=== PATIENT | female | born 1995 | race Caucasian/White ===

== ENCOUNTER 2022-08-24 18:37 | Emergency (ER) | payer BC, OTHER ==
[2022-08-24] MEDS ORDERED: MORPHINE SULFATE 2 MG INJ ONE ×2 (18:56→19:44)
[2022-08-24] MEDS ORDERED: MORPHINE SULFATE 2 MG INJ IM ONE ×2 (18:56→19:16)
--- NOTE | 2022-08-24 18:56 | ERPHSYRPT ---
- History of Present Illness Time Seen by Provider: 08/24/22 18:56 Source: patient Exam Limitations: no limitations Timing/Duration: today Quality: painful Severity: severe Location: extremities (left forearm) Possible Causes: other (dog bite) Associated Symptoms: swelling/mass/lumps, No numbness, No tingling Allergies/Adverse Reactions: No Known Drug Allergies Allergy (Verified 08/24/22 18:38) Hx Tetanus, Diphtheria Vaccination/Date Given: Yes (unknown date) - Review of Systems Constitutional: No Symptoms Eyes: No Symptoms Ears, Nose, & Throat: No Symptoms Respiratory: No Symptoms Cardiac: No Symptoms Abdominal/Gastrointestinal: No Symptoms Genitourinary Symptoms: No Symptoms Musculoskeletal: Other (left forearm pain and swelling) Skin: Other (dog bite left forearm) Psychological: Anxiety Endocrine: No Symptoms Hematologic/Lymphatic: No Symptoms Immunological/Allergic: No Symptoms All Other Systems: Reviewed and Negative - Female History Hx Now: No - Nursing Vital Signs Nursing Vital Signs: Initial Vital Signs Temperature 98.7 F 08/24/22 18:37 Pulse Rate 92 H 08/24/22 18:37 Respiratory Rate 18 08/24/22 18:37 Blood Pressure 124/94 08/24/22 18:37 O2 Sat by Pulse Oximetry 100 08/24/22 18:37 Pain Scale Pain Intensity 7 - Physical Exam General Appearance: moderate distress, anxiety Eye Exam: eyes nml inspection Ears, Nose, Throat Exam: normal ENT inspection Neck Exam: normal inspection Respiratory Exam: airway intact, No respiratory distress Cardiovascular Exam: capillary refill <2 sec Extremity Exam: other (2.5cm laceration on dorsal aspect of forearm, 1cm laceration on volar aspect of forearm, multiple puncture wounds surrounding the lacerations, no foreign body) Neurologic Exam: alert, oriented x 3, cooperative Skin Exam: normal color (Refer to extremity exam) SpO2 Interpretation: normal O2 Delivery: Room Air Procedures - Laceration/Wound Repair Left Anterior/Posterior Distal Volar Arm Time of Procedure: 19:30 Wound Location: Left, lower arm Wound Length (cm): 3.5 (of total laceration length, 2.5 dorsal, 1cm volar) Wound's Depth, Shape: superficial, irregular, contused tissue, into subcut Wound Explored: no foreign body noted Irrigated: Yes Hibiclens Prep: Yes Wound Debrided: minimal Wound Repaired With: Dermabond Sterile Dressing Applied?: No Splint Applied?: No Sling Applied?: Yes - Course Nursing assessment & vital signs reviewed: Yes - Radiology Exams Left Forearm X-ray Interpretation: Interpreted by me, No Fracture Left Shoulder X-ray Interpretation: Interpreted by me, Negative Ordered Tests: Active Orders 24 hr Category Date Time Status FOREARM Stat Exams 08/24/22 18:41 Completed SHOULDER Stat Exams 08/24/22 18:42 Completed Medication Summary Discontinued Medications Generic Name Dose Route Start Last Admin Trade Name Antonio PRN Reason Stop Dose Admin Diphtheria/Tetanus/Acell Pertussis 0.5 ml 08/24/22 20:06 08/24/22 20:35 Tdap --Diph,Pertuss(Acell),Tet Vac/Pf 0.5 Ml Vial IM 08/24/22 20:07 0.5 ml .ONCE ONE Administration Diphtheria/Tetanus/Acell Pertussis Confirm 08/24/22 20:34 Tdap --Diph,Pertuss(Acell),Tet Vac/Pf 0.5 Ml Vial Administered 08/24/22 20:35 Dose 0.5 ml IM .STK-MED ONE Morphine Sulfate 2 mg 08/24/22 18:56 08/24/22 19:03 Morphine Sulfate 2 Mg/Ml Inj IM 08/24/22 18:57 2 mg STAT ONE Administration Morphine Sulfate Confirm 08/24/22 18:56 Morphine Sulfate 2 Mg/Ml Inj Administered 08/24/22 18:57 Dose 2 mg .ROUTE .STK-MED ONE Morphine Sulfate 2 mg 08/24/22 19:16 08/24/22 19:47 Morphine Sulfate 2 Mg/Ml Inj IM 08/24/22 19:17 2 mg STAT ONE Administration Morphine Sulfate Confirm 08/24/22 19:44 Morphine Sulfate 2 Mg/Ml Inj Administered 08/24/22 19:45 Dose 2 mg .ROUTE .STK-MED ONE - Progress Progress: improved Progress Note: 08/24/22 20:08 Pain improved after 4mg of IM Morphine. XR showed no fracture. Tdap to be given. Gave patient option of sutures vs dermabond vs secondary intention. Patient elected to proceed with dermabond. Patient tolerated well, hemostatic at completion. D/c instruction given. 08/24/22 20:14 Placed in sling for comfort. Counseled pt/family regarding: diagnosis, need for follow-up, rad results Medical Desision Making - Diagnostic Testing Diagnostic test were ordered, analyzed, and reviewed by me: Yes Radiological Interpretation: Interpreted by me - Risk of complications The pt has a mod risk of morbidity or mortality based on: Need for prescription drug management - Departure Departure Disposition: Home Clinical Impression: Dog bite, Laceration of forearm, Puncture wound of forearm Condition: Stable Critical Care Time: No Referrals: DARY SILVA NP [NON-STAFF PHY W/O PRIVILEGES] - Follow up/PCP as directed Instructions: Animal Bites (DC) Additional Instructions: You have been evaluated in the Emergency Department today for an animal bite. Please keep the area surrounding the wounds clean and dry and watch closely for signs of infection. Please take the antibiotics prescribed to you in full, as directed. Please follow up with your primary care physician within two days. Return to the Emergency Department if you experience worsening or uncontrolled pain, spreading redness, fevers 100.4 or greater, pus from your bite, or for any other concerning symptoms. Thank you for choosing us for your care. Prescriptions: Hydrocodone/Acetaminophen [Hydrocodone-Acetamin 7.5-325] 1 each PO Q6H PRN PRN 3 Days #12 tablet MDD 4 tab PRN Reason: Pain Amox Tr/Potass Clav. 875 mg [Augmentin 875-125 Tablet] 1 each PO BID 7 Days #14 tablet
[2022-08-24 19:09] VITALS: O2SAT 100
[2022-08-24] MEDS ORDERED: Adacel Vial IM ONE ×2 (20:06→20:34)
[2022-08-24 20:30] VITALS: BP 128/98; PULSE 90
--- NOTE | 2022-08-24 20:31 | XRAY ---
Indication: Dog bite. Comparison: None 2 view left forearm demonstrates mid posterior soft tissue swelling with very tiny adjacent radial shaft cortical fracture. No other bony, articular, or soft tissue abnormalities.
--- NOTE | 2022-08-24 20:33 | XRAY ---
Indication: Pain. Comparison: None 3 view left shoulder demonstrates acromion slightly inferior to distal clavicle concerning for AC sprain versus separation. With and without weights may yield further information. No other bony, articular, or soft tissue abnormalities.
== END 2022-08-24 20:42 | disposition home or self-care (01) ==
LOC: ED 18:37
DX: S51.852A Open bite of left forearm, initial encounter (principal); W54.0XXA Bitten by dog, initial encounter; Z79.891 Long term (current) use of opiate analgesic
CPT/HCPCS: 12002; 73030; 73090; 90471; 90715; 96372; 99283; J2270

== ENCOUNTER 2023-04-29 07:24 | Day surgery (SDC) | payer BC, OTHER ==
[2023-04-29] MEDS ORDERED: Transderm Scop 1.5MG Patch TOP PRN (07:33)
[2023-04-29] MEDS ORDERED: Pepcid 20 MG VIAL IV ONE ×2 (07:33→07:56)
[2023-04-29 07:50] LABS: HCG URINE TEST NEGATIVE (NEGATIVE)
[2023-04-29] MEDS ORDERED: KEFZOL 1 GM/50 ML PREMIX** 1 GM/50 ML IVPB IV ONE (07:56)
[2023-04-29] MEDS ORDERED: Transderm Scop 1.5MG Patch ONE (07:56)
[2023-04-29] MEDS ORDERED: Lactated Ringers 1,000 ML IV ONE ×2 (07:56→09:53)
[2023-04-29] MEDS ORDERED: Lactated Ringers 1,000 ML IV SCH (08:00)
[2023-04-29] MEDS ORDERED: CEFAZOLIN 2 GM-D5W BAG** 2 GM/50 ML ML IV SCH ×2 (08:00→09:00)
[2023-04-29] MEDS ORDERED: CEFAZOLIN 2 GM-D5W BAG** 2 GM/50 ML ML IV ONE (08:25)
[2023-04-29 08:28] VITALS: RESP 16
[2023-04-29] MEDS ORDERED: Decadron 4 MG INJ ONE (08:51)
[2023-04-29] MEDS ORDERED: BRIDION 200MG/2ML IV ONE (08:51)
[2023-04-29] MEDS ORDERED: DIPRIVAN 200 MG/20 ML IV ONE (08:51)
[2023-04-29] MEDS ORDERED: Versed 2 MG/2 ML Injection ONE (08:51)
[2023-04-29] MEDS ORDERED: Zofran 4 MG/2 ML VIAL ONE ×2 (08:51→10:43)
[2023-04-29] MEDS ORDERED: Zemuron 100 MG/10 ML ONE (08:51)
[2023-04-29] MEDS ORDERED: Xylocaine-Mpf 2% 5 Ml Vial ONE (08:51)
[2023-04-29] MEDS ORDERED: TORAdol 30 mg Injection ONE (08:51)
[2023-04-29] MEDS ORDERED: SUBLIMAZE 100 MCG/2 ML ONE ×2 (08:51→10:53)
[2023-04-29] MEDS ORDERED: Sensorcaine 0.25% 10 ML ONE (09:02)
[2023-04-29] MEDS ORDERED: Ephedrine Sulfate 50 MG/ML ONE (10:09)
[2023-04-29] MEDS ORDERED: Hydromorphone 1 mg/ml Injection ONE (10:32)
[2023-04-29 11:45] VITALS: BP 135/81; PULSE 84; TEMP 97.8; O2SAT 100
--- NOTE | 2023-04-30 09:16 | OP ---
SURGERY DATE/TIME: 04/29/2023 0936 PREOPERATIVE DIAGNOSIS: Dyspareunia and right ovarian cyst. POSTOPERATIVE DIAGNOSIS: Dyspareunia and right paratubal cyst and left sided abdominal adhesion. PROCEDURES: 1) Diagnostic laparoscopy. 2) Removal of right paratubal cyst and lysis of bowel adhesions from the left side wall. SURGEON: Cassius Pratt D.O. VIDEOGAME DESIGNER: June Freitas, neurosurgical nurse practitioner. ANESTHESIA: General. ESTIMATED BLOOD LOSS: Minimal. COMPLICATIONS: None. INDICATIONS: The risks, benefits, indications and alternatives of the procedure were reviewed with the patient prior to procedure. The patient understood the risk of infection, bleeding, bowel injury, bladder injury, ureteral injury and pelvic infection associated with the surgery and desires to have this surgery as a possible means to alleviate her current medical condition. DESCRIPTION OF PROCEDURE AND FINDINGS: At this point the patient is taken to the operating room, given general sedation, placed in the supine position where she was prepped and draped in the usual sterile fashion. A 5 mm skin incision was made in the umbilical fold and a 5 mm incision was made where the 5 mm trocar and sleeve were advanced under direct visualization where pneumoperitoneum was obtained with 4 liters of CO2 gas. An additional incision was made in the left lower quadrant region where 5 mm incision was made and a 5 mm trocar and sleeve were advanced under direct visualization. An additional incision was made 2 cm above the symphysis pubis where a 5 mm incision was made and 5 mm trocar and sleeve were advanced under direct visualization. From this point, the visualization of the pelvic region appeared to be within normal limits other than her having right paratubal cyst approximately 3 x 2 cm in dimension and LigaSure was used after the adnexa was elevated and the LigaSure was placed just beneath the paratubal cyst was clamped, coagulated and cut and removed in its entirety without complications and hemostasis was obtained. The remaining fallopian tube in appeared to be within normal limits. From this point the left adnexa appeared to be within normal limits. There is no gross endometriotic implants that were noted in the pelvic region. The uterus was elevated and there were no endometriotic lesions that were noted in the posterior cul-de-sac or adnexal regions. There did appear to be left side colon was attached to the left abdominal side wall where at this point peanuts were used and the Endoshears were used to lyse adhesions removing left side colon away from the left abdominal side wall and it was done so without complication. From this point, all instruments were removed from the patient's abdominal region and the incisions were closed with 4-0 Monocryl suture. The patient was then taken out of anesthesia and was then taken to the recovery room in stable condition. All instruments and laps were accounted for x2.
== END 2023-04-29 11:05 | disposition home or self-care (01) ==
LOC: SDC 07:24
PROVIDERS: ATTEND Obstetrics & Gynecology
DX: N94.10 Unspecified dyspareunia (principal); N83.201 Unspecified ovarian cyst, right side; K66.0 Peritoneal adhesions (postprocedural) (postinfection); E11.9 Type 2 diabetes mellitus without complications
CPT/HCPCS: 81025; 82947; 87086; 96374; J0690; J1100; J1170; J1885; J2250; J2405; J2704; J3010; A9270-GY

== ENCOUNTER 2024-01-23 19:03 | Emergency (ER) | payer BC, OTHER ==
--- NOTE | 2024-01-23 19:16 | ERPHSYRPT ---
- History of Present Illness Time Seen by Provider: 01/23/24 19:16 Source: patient Exam Limitations: no limitations Physician History: This is a 29-year-old white female patient of nurse practitioner Marques who is approximately 8 weeks and was arguing with her spouse just prior to arrival and began having mild suprapubic cramps without vaginal bleeding that keller ddenly stopped prior to arrival and has not returned. Patient has had no nausea or vomiting symptoms. Her abdominal cramping has completely resolved. Patient has a history of hypothyroidism and insulin-dependent diabetes. Patient had TSH level drawn on 01/21/2024 and was within normal limits. Patient also had a beta quantitative hCG drawn on 01/21/2024 which measures 81,475. Patient denies chest pain. Patient denies shortness of breath. Timing/Duration: today Activites at Onset: none Quality: cramping Onset Location: suprapubic Pain Radiation: none Severity of Pain-Max: mild Severity of Pain-Current: none Sexual intercourse history: non-contributory Modifying Factors: Improves With: nothing Associated Symptoms: denies symptoms (Symptoms have resolved completely) Allergies/Adverse Reactions: No Known Drug Allergies Allergy (Verified 01/23/24 19:24) Home Medications: Insulin Aspart [NovoLOG Insulin] 1 unit SQ UD 04/21/23 [History] Levothyroxine Sodium [Tirosint] 1 tab PO DAILY 04/21/23 [History] Vit No.179/Iron/Folic [ Tablet] 1 each PO DAILY 01/23/24 [ History] Hx Tetanus, Diphtheria Vaccination/Date Given: Yes (unknown date) Hx Influenza Vaccination/Date Given: No Hx Pneumococcal Vaccination/Date Given: No Travel Risk - International Travel Have you traveled outside of the country in past 3 weeks: No - Emerging Infectious Disease Are you exhibiting symptoms associated with any current EIDs: No - Review of Systems Constitutional: No Symptoms Eyes: No Symptoms Ears, Nose, & Throat: No Symptoms Respiratory: No Symptoms Cardiac: No Symptoms Abdominal/Gastrointestinal: Other (Brief (minutes) suprapubic cramping during an argument with spouse) Genitourinary Symptoms: No Symptoms Musculoskeletal: No Symptoms Skin: No Symptoms Neurological: No Symptoms Psychological: No Symptoms Endocrine: No Symptoms Hematologic/Lymphatic: No Symptoms Immunological/Allergic: No Symptoms All Other Systems: Reviewed and Negative - Past Medical History Pertinent Past Medical History: Yes Neurological History: No Pertinent History ENT History: Other Cardiac History: No Pertinent History Respiratory History: No Pertinent History Endocrine Medical History: Diabetes Type I, Hypothyroidism Musculoskeletal History: No Pertinent History GI Medical History: No Pertinent History History: No Pertinent History Psycho-Social History: Anxiety, Depression Female Reproductive Disorders: No Pertinent History Other Medical History: 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 - Past Surgical History Past Surgical History: Yes Neuro Surgical History: No Pertinent History Cardiac: No Pertinent History, Cardiac Stent Respiratory: No Pertinent History Gastrointestinal: No Pertinent History, Other Genitourinary: No Pertinent History Musculoskeletal: No Pertinent History Female Surgical History: No Pertinent History Other Surgical History: colonoscopy - Social History Smoking Status: Never smoker Exposure to second hand smoke: No Drug Use: none Patient Lives Alone: No - Nursing Vital Signs Nursing Vital Signs: Initial Vital Signs Temperature 97.9 F 01/23/24 19:13 Pulse Rate 90 01/23/24 19:13 Blood Pressure 144/82 01/23/24 19:13 O2 Sat by Pulse Oximetry 99 01/23/24 19:13 Pain Scale Pain Intensity 0 - Physical Exam General Appearance: no apparent distress, alert, anxiety Eye Exam: PERRL/EOMI, eyes nml inspection Ears, Nose, Throat Exam: normal ENT inspection, moist mucous membranes Neck Exam: normal inspection, non-tender, supple, full range of motion Respiratory Exam: normal breath sounds, lungs clear, airway intact, No chest te nderness, No respiratory distress Cardiovascular Exam: regular rate/rhythm, normal heart sounds, normal peripheral pulses Gastrointestinal/Abdomen Exam: soft, normal bowel sounds, No tenderness Pelvic Exam: not done Rectal Exam: not done Back Exam: normal inspection, normal range of motion, No CVA tenderness, No vertebral tenderness Extremity Exam: normal inspection, normal range of motion, pelvis stable Neurologic Exam: alert, oriented x 3, cooperative, eye care professional II-XII nml as tested, nml cerebellar function, nml station & gait, sensation nml Skin Exam: normal color, warm, dry Lymphatic Exam: No adenopathy SpO2 Interpretation: normal O2 Delivery: Room Air - Course Nursing assessment & vital signs reviewed: Yes Ordered Tests: Active Orders 24 hr Category Date Time Status BMP Stat Lab 01/23/24 19:50 Completed CBC W DIFF Stat Lab 01/23/24 19:50 Completed CULTURE,URINE Stat Lab 01/23/24 20:03 Received UA W/RFX UR CULTURE Stat Lab 01/23/24 20:03 Completed Lab/Rad Data: Laboratory Result Diagrams 01/23/24 19:50 01/23/24 19:50 Laboratory Results 01/23/24 01/23/24 01/23/24 Range/Units 20:03 19:50 19:50 WBC 10.0 (3.98-10.04) x10^3/uL RBC 3.98 (3.93-5.22) x10^6/uL Hgb 11.5 (11.2-15.7) g/dL Hct 34.8 (34.1-44.9) % MCV 87.4 (79.4-94.8) fL MCH 28.9 (25.6-32.2) pg MCHC 33.0 (32.2-35.5) g/dL RDW 12.5 (11.7-14.4) % Plt Count 252 (182-369) x10^3/uL MPV 10.4 (9.4-12.3) fL Gran % 64.8 (34.0-71.1) % Immature Gran % (Auto) 0.3 (0.001-0.429) % Nucleat RBC Rel Count 0.0 (0.00-0.2) % Eos # (Auto) 0.04 (0.04-0.36) x10^3/uL Immature Gran # (Auto) 0.03 (0.001-0.031) x10^3u/L Absolute Lymphs (auto) 2.81 (1.18-3.74) x10^3/uL Absolute Monos (auto) 0.64 (0.24-0.86) x10^3/uL Absolute Nucleated RBC 0.00 (0.00-0.012) x10^3u/L Lymphocytes % 28.0 (19.3-51.7) % Monocytes % 6.4 (4.7-12.5) % Eosinophils % 0.4 L (0.7-5.8) % Basophils % 0.1 (0.1-1.2) % Absolute Granulocytes 6.49 H (1.56-6.13) x10^3/uL Basophils # 0.01 (0.01-0.08) x10^3/uL Sodium 134 L (135-145) mmol/L Potassium 4.2 (3.5-5.1) mmol/L Chloride 103 (98-107) mmol/L Carbon Dioxide 23 (22-30) mmol/L Anion Gap 12.3 (5-15) MEQ/L BUN 11 (7-17) mg/dL Creatinine 0.94 (0.52-1.04) mg/dL Estimated GFR 84.8 ML/MIN Glucose 194 H (74-106) mg/dL Calcium 8.8 (8.4-10.2) mg/dL Urine Color Yellow (Yellow) Urine Appearance Clear (Clear) Urine pH 6.5 (4.6-8.0) Ur Specific [place] 1.015 (1.005-1.030) Urine Protein Negative (Negative) Urine Glucose (UA) Negative (Negative) mg/dL Urine Ketones 40 A (Negative) Urine Blood Negative (Negative) Urine Nitrite Negative (Negative) Urine Bilirubin Negative (Negative) Urine Urobilinogen 0.2 (0.2) mg/dL Ur Leukocyte Esterase Small A (Negative) U Hyaline Cast (Auto) NONE SEEN (0-2) /LPF Urine Microscopic RBC 0-2 (0-5) /HPF Urine Microscopic WBC 11-20 A (0-5) /HPF Ur Epithelial Cells Few (None Seen) /HPF Urine Bacteria Moderate A (None Seen) /HPF Urine Culture Reflexed YES (NO) - Progress Progress: improved, re-examined Air Movement: good Progress Note: 01/23/24 19:49 My medical decision making and the assignment of low to moderate complexity in this patient's medical issue today is based on review of the patient's past medical history, review of the patient's medication list, reviewed patient drug allergy list, history presence and physical findings on examination. The workup in this patient includes a urinalysis, CBC and a BMP. Differential diagnosis includes but is not limited to brief uterine spasm/cramping, electrolyte abnormalities, urinary tract infection 01/23/24 19:50 I believe the argument and emotional stress that occurred during the argument might have precipitated the brief episode of suprapubic cramping that completely resolved itself prior to arrival to the emergency department. On my examination patient denies pain of any kind. Patient is not having any vaginal bleeding therefore I do not think that it is necessary to perform of less than 14-week OB ultrasound. Also, the patient had beta quantitative hCG performed 2 days ago and I do not think it is necessary to repeat this level at this time. 01/23/24 21:20 I interpreted the patient's laboratory data results. Based on the laboratory data results, the patient is mildly dehydrated and has a urinary tract infection. Blood Culture(s) Obtained: No Antibiotics given: Yes Counseled pt/family regarding: lab results, diagnosis, need for follow-up Medical Desision Making - Diagnostic Testing Diagnostic test were ordered, analyzed, and reviewed by me: Yes - Risk of complications The pt has a mod risk of morbidity or mortality based on: Need for prescription drug management - Departure Departure Disposition: Home Clinical Impression: Urinary tract infection during , Mild dehydration Condition: Stable Critical Care Time: No Referrals: DARY SILVA NP [Primary Care Provider] - Follow up/PCP as directed Additional Instructions: Drink plenty of clear liquids every day. Take your antibiotics as prescribed. Prescriptions: Cephalexin Mh 500 mg [Keflex 500 mg] 500 mg PO TID #15 cap
[2024-01-23 19:24] VITALS: TEMP 97.9
[2024-01-23 19:57] VITALS: RESP 17
[2024-01-23 19:58] LABS: Absolute Neutrophil Ct (ANC) 6.49 x10^3/uL (1.56-6.13); BASOPHIL % 0.1 % (0.1-1.2); Basophil (Absolute #) 0.01 x10^3/uL (0.01-0.08); Eosinophil % 0.4 % (0.7-5.8); Eosinophil (Absolute #) 0.04 x10^3/uL (0.04-0.36); Hematocrit 34.8 % (34.1-44.9); Hemoglobin 11.5 g/dL (11.2-15.7); IMMATURE GRAN # 0.03 x10^3u/L (0.001-0.031); IMMATURE GRAN % 0.3 % (0.001-0.429); Lymphocyte (Absolute #) 2.81 x10^3/uL (1.18-3.74); Mean Cell Volume 87.4 fL (79.4-94.8); Mean Corpuscular Hemoglobin 28.9 pg (25.6-32.2); Mean Platelet Volume 10.4 fL (9.4-12.3); Monocyte (Absolute #) 0.64 x10^3/uL (0.24-0.86); Monocytes % 6.4 % (4.7-12.5); Neutrophil % 64.8 % (34.0-71.1); Platelet Count 252 x10^3/uL (182-369); Red Blood Count 3.98 x10^6/uL (3.93-5.22); Red Cell Distribution Width 12.5 % (11.7-14.4)
[2024-01-23 20:11] LABS: ANION GAP 12.3 MEQ/L (5-15); Calcium 8.8 mg/dL (8.4-10.2); Creatinine 1 0.94 mg/dL (0.52-1.04); EST GLOMERULAR FILTRATION RATE 84.8 ML/MIN; Potassium 4.2 mmol/L (3.5-5.1)
[2024-01-23 21:02] VITALS: BP 121/79; PULSE 89; O2SAT 98
[2024-01-23 21:09] LABS: ADD URINE CULTURE? YES (NO); Appearance Clear (Clear); Bacteria Moderate /HPF (None Seen); Bilirubin Negative (Negative); Blood Negative (Negative); Epithelial Cells Few /HPF (None Seen); Glucose, Urine Negative (Negative); Hyaline Casts NONE SEEN /LPF (0-2); Ketones 40 (Negative); Leukocyte Esterase Small (Negative); Nitrite Negative (Negative); Ph 6.5 (4.6-8.0); Protein,Urine Dip Negative (Negative); RBC 0-2 /HPF (0-5); Specific Gravity 1.015 (1.005-1.030); Urobilinogen 0.2 mg/dL (0.2)
[2024-01-23] MEDS ORDERED: KEFLEX 500 MG ONE (21:22)
[2024-01-23] MEDS: KEFLEX 500 MG PO ONE (21:23)
== END 2024-01-23 21:32 | disposition home or self-care (01) ==
LOC: ED 19:03
DX: O23.41 Unspecified infection of urinary tract in pregnancy, first trimester (principal); N39.0 Urinary tract infection, site not specified; Z3A.08 8 weeks gestation of pregnancy; E86.0 Dehydration; R10.2 Pelvic and perineal pain; E10.9 Type 1 diabetes mellitus without complications; Z79.899 Other long term (current) drug therapy
CPT/HCPCS: 36415; 80048; 81001; 85025; 87086; 99283; A9270-GY